=== PATIENT | male | born 1950 | race Caucasian/White ===

== ENCOUNTER 2019-04-18 14:12 | Outpatient (CLI) | payer MEDICARE | END 2019-04-18 23:59 | disposition home or self-care (01) | LOC: CFH 14:12 | PROVIDERS: ATTEND Family Medicine | DX: Z12.2 Encounter for screening for malignant neoplasm of respiratory organs (principal); J44.9 Chronic obstructive pulmonary disease, unspecified; F17.210 Nicotine dependence, cigarettes, uncomplicated | CPT/HCPCS: G0297 ==

== ENCOUNTER → 2020-05-16 | Outpatient (CLI) | payer MEDICARE ==
[~2020-05-16] MED LIST: AMIO400T5 PO; ATEN50TA41 PO; CARV-39 PO; CARV12.543 PO; CLON0.3T PO; CLOP300T5 PO; DIGO125T81 PO; LEVO150T PO; LISI-468 PO; OMEP-110 PO; OMEP40CA42 PO; QUET300T PO; SIMV40TA20 PO; TRAZ50TA66 PO; WARF3TAB52 PO-COUM
== END | disposition home or self-care (01) ==
LOC: CVU 14:56
PROVIDERS: ATTEND Internal Medicine Cardiovascular Disease
DX: I08.0 Rheumatic disorders of both mitral and aortic valves (principal); I48.0 Paroxysmal atrial fibrillation; I25.10 Atherosclerotic heart disease of native coronary artery without angina pectoris
CPT/HCPCS: 93306; 93356

== ENCOUNTER → 2020-08-27 | Outpatient (CLI) | payer MEDICARE | END | disposition home or self-care (01) | LOC: WOUND 12:43 | PROVIDERS: ATTEND Nurse Practitioner Family | DX: L98.411 Non-pressure chronic ulcer of buttock limited to breakdown of skin (principal); R21 Rash and other nonspecific skin eruption; I48.0 Paroxysmal atrial fibrillation; I25.10 Atherosclerotic heart disease of native coronary artery without angina pectoris; I10 Essential (primary) hypertension; E03.9 Hypothyroidism, unspecified; I48.91 Unspecified atrial fibrillation; F17.210 Nicotine dependence, cigarettes, uncomplicated | CPT/HCPCS: 97597; G0463 ==

== ENCOUNTER 2020-09-03 12:37 | Outpatient (CLI) | payer MEDICARE | END 2020-09-03 23:59 | disposition home or self-care (01) | LOC: WOUND 12:37 | PROVIDERS: ATTEND Nurse Practitioner Family | DX: L89.316 Pressure-induced deep tissue damage of right buttock (principal); L89.326 Pressure-induced deep tissue damage of left buttock; L98.411 Non-pressure chronic ulcer of buttock limited to breakdown of skin; R21 Rash and other nonspecific skin eruption; I48.0 Paroxysmal atrial fibrillation; I25.10 Atherosclerotic heart disease of native coronary artery without angina pectoris; I10 Essential (primary) hypertension; E03.9 Hypothyroidism, unspecified; I48.91 Unspecified atrial fibrillation; F17.210 Nicotine dependence, cigarettes, uncomplicated | CPT/HCPCS: G0463 ==